=== PATIENT | male | born 1965 | race Caucasian/White ===

== ENCOUNTER 2020-06-11 11:34 | Emergency (ER) | payer OTHER ==
[2020-06-11 12:18] LABS: HEMOGLOBIN 15.3 gm/dl (14.0-17.5); RED BLOOD COUNT 5.17 M/UL (4.20-5.50); WHITE BLOOD COUNT 7.9 K/UL (4.5-11.0)
[2020-06-11 12:42] LABS: BUN/CREATININE RATIO 21 (0-10)
[2020-06-11] MEDS ORDERED: ZITHROMAX250 MG PO (15:44)
[2020-06-11] MEDS ORDERED: GLUCOPHAGE 500500 MG PO (15:44)
== END 2020-06-11 16:00 | disposition home or self-care (01) ==
LOC: ER1 11:34
PROVIDERS: Emergency Medicine
DX: J18.9 Pneumonia, unspecified organism (principal); I10 Essential (primary) hypertension; E78.5 Hyperlipidemia, unspecified; K21.9 Gastro-esophageal reflux disease without esophagitis; Z20.822 Contact with and (suspected) exposure to COVID-19; Z90.89 Acquired absence of other organs
CPT/HCPCS: 71045; 80053; 81001; 82009; 82550; 82553; 82962; 83874; 84484; 85025; 93005; 96374; 99285; U0002